=== PATIENT | female | born 1950 | race Caucasian/White ===

== ENCOUNTER 2016-11-29 08:27 | Day surgery (SDC) | payer BC ==
[~2016-11-29] VITALS: Ht 157.5 cm; Wt 55.3 kg
--- NOTE | ~2016-11-29 | EGD ---
EGD REPORT [facility] [address] [place] [id number] NAME: KUSUM ALVAREZ : [birth year] STATUS : REG [facility] [place] PAT#: [id number] AGE: 66 ADM/REG DATE : 11/29/16 MR#: [id number] REPORT SERV DATE: 11/29/16 DICTATED BY: RICARDO BARRIOS DATE: 11/29/16 REPORT STATUS : Draft TRANSCRIBED BY: [facility] DATE: 11/29/16 Endoscopy Center Patient Name: Kusum Alvarez Date of : 1950 Attending MD: LULA BARRIOS MD Procedure Date No Time: 11/29/2016 Procedure: Upper GI endoscopy Indications: Gastro-esophageal reflux disease Referring MD: CHATO CORTES III Medicines: See the Anesthesia note for documentation of the administered medications Complications: No immediate complications. Estimated blood loss: None. Procedure: Pre-Anesthesia Assessment: - ASA Grade Assessment: II - A patient with mild systemic disease. - Prior to the procedure, a History and Physical was performed, and patient medications and allergies were reviewed. The patient's tolerance of previous anesthesia was also reviewed. The risks and benefits of the procedure and the sedation options and risks were discussed with the patient. All questions were answered, and informed consent was obtained. Prior Anticoagulants: The patient has taken previous NSAID medication, last dose was 2 days prior to procedure. After reviewing the risks and benefits, the patient was deemed in satisfactory condition to undergo the procedure. After obtaining informed consent, the endoscope was passed under direct vision. Throughout the procedure, the patient's blood pressure, pulse, and oxygen saturations were monitored continuously. The GIF [id number] was introduced through the mouth, and advanced to the second part of duodenum. The upper GI endoscopy was accomplished without difficulty. The patient tolerated the procedure well. Findings: The examined duodenum was normal. Diffuse mild inflammation characterized by congestion (edema) and erythema was found in the stomach. Biopsies were taken with a cold forceps for histology. The cardia and gastric fundus were normal on retroflexion. The examined esophagus was normal. Impression: - Normal examined duodenum. - Gastritis. Biopsied. EGD REPORT [address] [address] NAME: KUSUM ALVAREZ : [birth year] STATUS : REG [facility] [place] PAT#: [id number] AGE: 66 ADM/REG DATE : 11/29/16 MR#: [id number] REPORT SERV DATE: 11/29/16 DICTATED BY: RICARDO BARRIOS DATE: 11/29/16 REPORT STATUS : Draft TRANSCRIBED BY: [employer] DATE: 11/29/16 - Normal esophagus. Recommendation: - Patient has a contact number available for emergencies. The signs and symptoms of potential delayed complications were discussed with the patient. Return to normal activities tomorrow. Written discharge instructions were provided to the patient. - Regular diet. - Discharge patient to home. - Continue present medications. - Await pathology results. - Return to my office in 4 months. Procedure Code(s): --- Professional --- 27364, Esophagogastroduodenoscopy, flexible, transoral; with biopsy, single or multiple Diagnosis Code(s): --- Professional --- K29.70, Gastritis, unspecified, without bleeding K21.9, Gastro-esophageal reflux disease without esophagitis CPT copyright 2013 [employer]. All rights reserved. The codes documented in this report are preliminary and upon physician coder review may be revised to meet current compliance requirements. LULA BARRIOS MD 11/29/2016 10:12 AM This report has been signed electronically. Number of Addenda: 0 Note Initiated On: 11/29/2016 7:15 AM Scope Withdrawal Time 0 hours 0 minutes 0 seconds [id number] [place] [id number]
[~2016-11-29 08:27] MED LIST: ANASPAZ0.125 MG PO; CYMBALTA60 PO; ENDOCET1 TA3 PO; MOBIC15 MG PO; NEUR400 PO; PR25 PO; PRILOSEC40 MG PO; RANITIDINE300 MG PO; SUMATRIPTAN; TOPAMAX50 MG PO
== END 2016-11-29 23:59 | disposition home health service (06) ==
LOC: DMU 08:27
PROVIDERS: Internal Medicine Gastroenterology
PROC: 0DB68ZX Excision of Stomach, Via Natural or Artificial Opening Endoscopic, Diagnostic (ICD-10-PCS; principal; 2016-11-29 10:00)
DX: K29.50 Unspecified chronic gastritis without bleeding (principal); K21.9 Gastro-esophageal reflux disease without esophagitis; G43.909 Migraine, unspecified, not intractable, without status migrainosus; F41.9 Anxiety disorder, unspecified; F32.9 Major depressive disorder, single episode, unspecified; Z86.73 Personal history of transient ischemic attack (TIA), and cerebral infarction without residual deficits; Z79.899 Other long term (current) drug therapy; Z90.49 Acquired absence of other specified parts of digestive tract; Z90.710 Acquired absence of both cervix and uterus; Z98.890 Other specified postprocedural states
CPT/HCPCS: 88305